=== PATIENT | male | born 1990 | race Two or more races ===

== ENCOUNTER 2021-08-22 20:48 | Emergency (ER) | payer BC, OTHER ==
[2021-08-22] MEDS: Ketorolac 30 MG/ML SDV IM ONE (21:43)
[2021-08-22] MEDS: cefTRIAXone 1 GM Vial IM ONE (21:44)
[2021-08-22] MEDS: Acetaminophen 500 MG Tab PO ONE (21:46)
== END 2021-08-22 22:25 | disposition home or self-care (01) ==
LOC: FB.ED 20:48
DX: H66.91 Otitis media, unspecified, right ear (principal); H72.92 Unspecified perforation of tympanic membrane, left ear
CPT/HCPCS: 96372; 99282; 99283; J0696; J1885